=== PATIENT | male | born 1940 | race Caucasian/White ===

== ENCOUNTER → 2020-01-31 | Outpatient (CLI) | payer MEDICARE, OTHER ==
[~2020-01-31] MED LIST: ALLEGRA ALLERG180 MG PO; ALLOPURINOL 30300 M2 PO; ASPIR 8181 MG PO; ASPIRIN325 PO; ATACAND16 MG PO; AVAPRO 150 MG150 M1 PO; COLACE 100 MG100 MG PO; FISH OIL 1,001000 M2 PO; FLOMAX0.4 MG PO; FOLIC ACID 40400 MCG PO; GLIPIZIDE 10 MG10 MG PO; HYDROCHLOROTHIA25 M2 PO; KLOR-CON 1010 MEQ PO; LIPITOR10 MG PO; LOPRESSOR50 PO; LORTAB 10-3251 EACH PO; METFORMIN HCL500 MG PO; NEURONTIN600 MG PO; NIZORAL120 ML TP; NORCO 5-325 TA1 EACH PO; ONGLYZA5 MG PO; OXYCODONE HCL 55 MG PO; UNICOMPLEX M TA1 TA1 PO; VALIUM5 MG PO; VITAMIN E200 UNI4 PO
== END ==
LOC: M.LAB 01:54
DX: E87.6 Hypokalemia (principal)